=== PATIENT | male | born 1985 | race Caucasian/White ===

== ENCOUNTER 2021-04-01 17:11 | Emergency (ER) | payer SELFPAY | END 2021-04-01 17:49 | disposition left against medical advice (07) | DRG 951 | LOC: ED 17:11 → LWOBS 17:48 | DX: Z53.21 Procedure and treatment not carried out due to patient leaving prior to being seen by health care provider (principal) ==

== ENCOUNTER 2024-04-02 10:21 | Observation (INO) | payer SELFPAY ==
[~2024-04-02] VITALS: Ht 170.2 cm; Wt 68.0 kg
[2024-04-02] VITALS (30 sets, daily range): BP systolic 102–141; BP diastolic 63–91
[2024-04-02] MEDS ORDERED: DiphenhydrAMINE HCL 50 MG/ML SDV IV ONE (10:30)
[2024-04-02] MEDS ORDERED: HALOPERIDOL LACTATE 5 MG/ML SDV IV ONE (10:30)
[2024-04-02] MEDS ORDERED: LORazepam 2 MG/ML IV ONE (10:35)
--- NOTE | 2024-04-02 10:41 | NUR ---
Pt to rm 7 via ems. Pt agitated and verbally aggressive. Pt medicated per MD orders
[2024-04-02 10:46] LABS: HEMATOCRIT 43.5 % (39.0-50.0); HEMOGLOBIN 14.7 g/dl (14.0-18.0); IMMATURE GRANULOCYTES 0.3 % (0.0-5.0); MEAN CELL VOLUME 97.1 fL CALC (80.0-100.0); MEAN CORPUSCULAR HGB 32.8 pG CALC (26.0-32.0); MEAN CORPUSCULAR HGB CONC 33.8 g/dL CAL (32.0-36.0); PLATELET COUNT 367 thou/uL (130-400); RED BLOOD COUNT 4.48 mill/uL (4.70-6.10); RED CELL DISTRI WIDTH 13.2 % (11.5-15.5)
[2024-04-02 10:55] LABS: MANUAL DIFFERENTIAL YES
[2024-04-02 11:15] LABS: BAND 3 % (0-8); PLATELET ESTIMATE NORMAL
--- NOTE | 2024-04-02 11:18 | NUR ---
REASSESSMENT OF PT COMPLETED. PT SLEEPING AT THIS TIME.
[2024-04-02 12:06] LABS: ALBUMIN 4.9 g/dL (3.2-5.0); BILIRUBIN, TOTAL 1.4 mg/dL (0.2-1.3); CREATININE 1.4 mg/dL (0.7-1.3); POTASSIUM 3.8 mmol/l (3.5-5.1); TOTAL PROTEIN 7.8 g/dL (6.3-8.2)
[2024-04-02] MEDS ORDERED: SODIUM CHLORIDE 0.9% 1,000 ML IV ONE ×3 (12:10→12:40)
[2024-04-02] MEDS ORDERED: cefTRIAXone SODIUM 2 GM in SODIUM CHLORIDE 0.9% 100 ML IV ONE (12:10)
[2024-04-02 12:20] LABS: URINE BLOOD DIPSTICK Negative (NEGATIVE); URINE GLUCOSE - DIPSTICK Negative (NEGATIVE); URINE KETONE 15 mg/dL (NEGATIVE); URINE LEUK ESTERASE Negative (NEGATIVE); URINE NITRITE - DIPSTICK Negative (Negative); URINE PH 5.5 (4.5-8.0); URINE PROTEIN - DIPSTICK 100 mg/dL (NEG-TRACE); URINE SPECIFIC GRAVITY >=1.030
[2024-04-02 12:23] LABS: URINE COLOR Dark yellow
[2024-04-02 12:27] LABS: URINE AMORPH SEDIMENT MANY hpf (NONE-FER); URINE BACTERIA RARE hpf; URINE RBC 0-2 RBC/hpf (0-5)
[2024-04-02 12:28] LABS: URINE MUCUS MODERATE hpf (NONE-FEW)
--- NOTE | 2024-04-02 12:30 | NUR ---
Reassessment of pt completed. Pt sleeping at this time.
--- NOTE | 2024-04-02 13:02 | NUR ---
Pt receiving prescribed fluids and antibiotic at this time.
--- NOTE | 2024-04-02 14:02 | NUR ---
2L of fluids given, pt sleeping at this time. Waiting on discharges before pt receives a room for admission.
[2024-04-02] MEDS ORDERED: SODIUM CHLORIDE 0.9% 1,000 ML IV PRN (14:15)
[2024-04-02] MEDS ORDERED: ACETAMINOPHEN 325 MG/TAB PO PRN (14:15)
[2024-04-02] MEDS ORDERED: MAGNESIUM HYDROXIDE 30 ML UDC PO PRN (14:15)
--- NOTE | 2024-04-02 14:50 | NUR ---
Third liter of fluid given. Pt sleeping at this time.
--- NOTE | 2024-04-02 16:10 | NUR ---
Reassessment of patient completed. No distress noted.
--- NOTE | 2024-04-02 16:29 | NUR ---
Pt received rm 273, but med surg states room is not ready.
--- NOTE | 2024-04-02 17:16 | NUR ---
Report given to [facility]ELL[facility] Patel med surg
--- NOTE | 2024-04-02 17:30 | NUR ---
RECEIVED PT FROM ER VIA STRETCHER AND ORIENTED TO ROOM, CALL LIGHT AND PHONE. LEFT A/C WITH 20 G PATENT AND NS STARTED AT 125ML/HR. PT AROUSABLE AND ORIENTED TO PLACE AND YEAR AND SELF. ANSWERED QUESTIONS APPROPRIATELY AND WAS COOOPERATIVE. TELEMETRY IN PLACE #11 WITH NSR/ST 99-105. PT WITHOUT COMPLAINTS AT THIS TIME. AFTER GIVEN WATER AND ASSESSMENT QUESTIONS PATIENT CLOSED EYES AND RESP AT EASE. SITTER DEVON AT BEDSIDE.
--- NOTE | 2024-04-02 18:45 | NUR ---
PT CONTINUES TO REST WITH EASE EYES CLOSED AND RESP AT EASE. IVF CONTINUE. NO CHANGES. REPORT GIVEN TO
--- NOTE | 2024-04-02 19:49 | NUR ---
REPORT RECEIVED. PT RESTING IN BED WITH EYES CLOSED. AROUSABLE EASILY. NO S/S OF DISTRESS NOTED AT THIS TIME. ROOM AIR. TELE #11, HR 95, SINUS RYTHM ON THE MONITOR. SAFETY MEASURES IN PLACE. WILL CONTINUE TO MONITOR.
[2024-04-02] MEDS ORDERED: Heparin SODIUM (Porcine) 5,000 UNITS/ML SDV SC SCH (22:00)
[2024-04-03] VITALS: BP 118/69
--- NOTE | 2024-04-03 00:10 | NUR ---
PT RESTING IN BED COMFORTABLY. NO S/S OF DISCOMFORT OR DISTRESS NOTED. CALL LIGHT WITHIN REACH. WILL CONTINUE TO MONITOR.
--- NOTE | 2024-04-03 04:00 | NUR ---
PT RESTING IN BED. NO S/S OF DISTRESS OR DISCOMFORT NOTED. ROOM AIR. ABLE TO VERBALIZE HIS NEEDS. ENCOURAGE TO CALL FOR ASSISTANCE. SAFETY PRECAUTIONS IN PLACE.
[2024-04-03 05:02] VITALS: BP 113/63
[2024-04-03 05:53] LABS: BASO% 0.5 % (0-3); EOS% 2.6 % (0-8); HEMATOCRIT 38.4 % (39.0-50.0); HEMOGLOBIN 12.8 g/dl (14.0-18.0); IMMATURE GRANULOCYTES 0.2 % (0.0-5.0); LYMPH% 12.6 % (15-41); MEAN CELL VOLUME 100.8 fL CALC (80.0-100.0); MEAN CORPUSCULAR HGB 33.6 pG CALC (26.0-32.0); MEAN CORPUSCULAR HGB CONC 33.3 g/dL CAL (32.0-36.0); MONO% 8.4 % (2-13); NEUT# 10.01 thou/uL (1.82-7.42); NEUT% 75.7 % (42-76); RED BLOOD COUNT 3.81 mill/uL (4.70-6.10); RED CELL DISTRI WIDTH 13.6 % (11.5-15.5)
[2024-04-03 05:56] LABS: CREATININE 0.8 mg/dL (0.7-1.3); MAGNESIUM 2.2 mg/dL (1.6-2.3); POTASSIUM 4.1 mmol/l (3.5-5.1)
[2024-04-03 05:59] LABS: ALBUMIN 3.3 g/dL (3.2-5.0); TOTAL PROTEIN 5.4 g/dL (6.3-8.2)
[2024-04-03 06:47] VITALS: BP 105/60
--- NOTE | 2024-04-03 07:22 | NUR ---
PT SLEEPING COMFORTABLY AT THIS TIME, RESPIRATIONS ARE EVEN AND UNLABORED.
--- NOTE | 2024-04-03 08:01 | NUR ---
PT IS AOX4, RESPIRATIONS ARE EVEN AND UNLABORED ON RA, LUNGS ARE CLEAR THROUGHOUT, PT REPORTS HAVING A PRODUCTIVE COUGH WITH BROWINISH SPUTUM, STATES HE QUIT SMOKING 3 DAYS AGO, BOWEL UNDS ARE ACVIVE, PEDAL PULSES ARE STRONG TO THE THOCH, DENIES PAIN AT THIS TIME.
[2024-04-03 10:09] VITALS: BP 106/64
--- NOTE | 2024-04-03 10:40 | NUR ---
PT STATES HIS "ONLY RIDE IS HERE AND SHE DROVE AN HOUR TO PICK HIM UP, HE NEEDED TO LEAVE NOW, STATES HE DOES NOT NEED THE DISCHARGE PAPERWORK." ASKED PT TO GIVE STAFF A MOMENT AND WE WILL HAVE HIS PAPERWORK FOR HIS DISCHARGE. PT AGREED TO WAIT FOR A COUPLE MINUTES.
--- NOTE | 2024-04-03 10:55 | NUR ---
REVIEWED DISCHARGE INSTRUCTIONS WITH PT, REMOVED IV, REMOVED TELE MONITOR AND PLACED IT IN RETURN BIN AT NURSES STATION.
--- NOTE | 2024-04-03 10:56 | NUR ---
PT REFUSED [employer]SP[employer] FOR DISCHARGE, PT LEFT THE UNIT WITH SHOES AND ID IN HAND.
== END 2024-04-03 10:54 | disposition home or self-care (01) | DRG 558 ==
LOC: ED 10:21 → ED-I 12:19 → ED 12:39 → MS2 12:40
PROVIDERS: Family Medicine; Nurse Practitioner Family; ADMIT Internal Medicine; ATTEND Internal Medicine
DX: M62.82 Rhabdomyolysis (principal); N17.9 Acute kidney failure, unspecified; F15.10 Other stimulant abuse, uncomplicated; D72.829 Elevated white blood cell count, unspecified; E86.0 Dehydration
CPT/HCPCS: G0378; J0696; J1200; J1630; J1644; J2060